=== PATIENT | male | born 1955 | race Caucasian/White ===

== ENCOUNTER 2021-10-06 10:14 | Day surgery (SDC) | payer BC ==
[2021-10-02 14:01] VITALS: BMI 24.4
[~2021-10-06 10:14] MED LIST: DEXAMETHASONE SOD PHOSPHATE 4 MG/ML 1 ML VIAL IV ONE; HEPARIN SODIUM,PORCINE/PF 5,000 UNIT/0.5 ML SYRINGE SQ PRN; HYDROmorphone 0.5 MG/0.5 ML SYRINGE IVP PRN; LACTATED RINGERS 1,000 ML IV SCH; LIDOCAINE 1% (10MG/ML) FOR IV START INTRADERMA PRN; ONDANSETRON 4 MG/2 ML VIAL IVP ONE
--- NOTE | 2021-10-06 11:08 | P.GSHP ---
History of Present Illness H&P Date: 10/06/21 Chief Complaint: Left inguinal hernia 66-year-old male seen in June. Patient complains of bulge left groin. Mild pain at times. Symptoms increase with coughing and straining. No prior hernias. Past Medical History Additional Past Medical History / Comment(s): left inguinal hernia History of Any Multi-Drug Resistant Organisms: None Reported Additional Past Surgical History / Comment(s): colonoscopy Past Anesthesia/Blood Transfusion Reactions: No Reported Reaction Additional Past Anesthesia/Blood Transfusion Reaction / Comment(s): no hx blood transfusion Smoking Status: Current every day smoker - Past Family History Mother Family Medical History: No Reported History Medications and Allergies Home Medications Medication Instructions Recorded Confirmed Type No Known Home Medications 10/02/21 10/06/21 History Allergies Allergy/AdvReac Type Severity Reaction Status Date / Time No Known Allergies Allergy Verified 10/06/21 10:39 Surgical - Exam Vital Signs Temp Pulse Resp BP Pulse Ox 97.9 F 59 L 16 149/67 99 10/06/21 10:40 10/06/21 10:40 10/06/21 10:40 10/06/21 10:40 10/06/21 10:40 Physical exam: General: Well-developed, well-nourished HEENT: Normocephalic, sclerae nonicteric Abdomen: Nontender, nondistended, reducible moderate size left inguinal hernia, no palpable hernia on right Extremities: No edema Neuro: Alert and oriented Assessment and Plan (1) Left inguinal hernia Narrative/Plan: 66-year-old male with symptomatic left inguinal hernia. Options reviewed. We'll proceed with laparoscopic da Manpreet assisted repair left inguinal hernia with mesh, possible open, possible bilateral. Risks of bleeding, infection, rec urrence, bladder and bowel injury, numbness, nerve injury, conversion to an open procedure were discussed with the patient. The patient understands and wishes to proceed. Current Visit: Yes Status: Acute Code(s): K40.90 - UNIL INGUINAL HERNIA, W/O OBST OR GANGR, NOT SPCF RECUR SNOMED Code(s): 745404668
[2021-10-06] MEDS ORDERED: TAMSULOSIN 0.4 MG CAP.ER.24H PO ONE (12:21)
[2021-10-06] MEDS ORDERED: TAMSULOSIN 0.4 MG CAP.ER.24H PO STA (12:24)
[2021-10-06] MEDS ORDERED: PROPOFOL 10 MG/ML 20 ML VIAL IV ONE (12:48)
[2021-10-06] MEDS ORDERED: KETOROLAC 15 MG/ML 1 ML VIAL ONE (12:48)
[2021-10-06] MEDS ORDERED: MIDAZOLAM 2 MG/2 ML VIAL ONE (12:48)
[2021-10-06] MEDS ORDERED: SUCCINYLCHOLINE CHLORIDE 200 MG/10 ML VIAL IV ONE (12:48)
[2021-10-06] MEDS ORDERED: LIDOCAINE 2% INJ 20 MG/ML (2 ML VIAL) ONE (12:48)
[2021-10-06] MEDS ORDERED: fentaNYL (PF) 50 MCG/ML 2 ML AMP ONE (12:48)
[2021-10-06] MEDS ORDERED: GLYCOPYRROLATE 0.2 MG/ML 2 ML VIAL ONE (12:48)
[2021-10-06] MEDS ORDERED: ROCURONIUM 10 MG/ML (5 ML VIAL) IV ONE (12:48)
[2021-10-06] MEDS ORDERED: ePHEDrine 50 MG/ML 1 ML VIAL ONE (12:48)
[2021-10-06] MEDS ORDERED: NEOSTIGMINE 1 MG/ML 10 ML VIAL ONE (12:48)
[2021-10-06] MEDS ORDERED: BUPIVACAIN-EPI 0.25%-1:200,000 30 ML VIAL SQ ONE (13:29)
--- NOTE | 2021-10-06 14:46 | P.OP ---
Date of Procedure: 10/06/21 Procedure(s) Performed: PREOPERATIVE DIAGNOSIS: Left inguinal hernia POSTOPERATIVE DIAGNOSIS: Left indirect inguinal hernia PROCEDURE: Laparoscopic da Manpreet assisted repair indirect left inguinal hernia with mesh SURGEON: Dr. Worthy ANESTHESIA: General OPERATIVE PROCEDURE DETAILS: Patient was placed in the operating table in the supine position. The patient was placed under general anesthesia. The abdomen was prepped and draped in usual sterile fashion. A small curvilinear supraumbilical incision was made. The fascia was retracted anteriorly with Mountain forceps. The Veress needle was inserted. The saline drop test was normal. Insufflation took place to 15 mmHg. An 8 mm trocar was placed into the peritoneal cavity. 2 additional 8 mm trochars were placed in the right upper quadrant and left upper quadrant under visualization. The robotic arms were then brought in and docked into place. The fenestrated bipolar was used in the left arm and the laparoscopic leandro was utilized in the right arm. A 30 8 mm scope was used in the up position. The peritoneal cavity was inspected. The p atient had a superficial defect in the right groin. This appeared to be the start of a small indirect inguinal hernia. Given the patient's lack of symptoms and small size this was not addressed at this time. Patient had a moderate sized indirect inguinal hernia on the left however containing a portion of the sigmoid colon. The left side was addressed at this time. The peritoneum was incised in a horizontal fashion cephalad to the internal inguinal ring. Following that careful dissection of the preperitoneal space took place. This took place using both electrocautery, sharp dissection but primarily blunt dissection. Visualization of the pubic tubercle and Pablo's ligament took place medially. Full dissection took place laterally as well. The hernia sac was fully dissected. Once we had adequate space the extra-large Bard 3-D mid mesh was advanced into the preperitoneal space and flattened out appropriately to cover all potential hernia sites. No sutures were used. The peritoneal defect was then closed using a absorbable 2-0 VLok suture. The hernia sac was incorporated into the peritoneal closure to help prevent future recurrence. The pneumoperitoneum was then evacuated. The skin of all 3 sites was closed using a 4-0 Monocryl stitch. Skin glue was then applied. TYPE OF MESH USED: Bard 5 x 7" extra-large 3-D mid mesh LOCATION OF MESH: Preperitoneal FIXATION: None PREOPERATIVE DISCUSSION ON SMOKING CESSASTION: Yes PREOPERATIVE DISCUSSION ON MORBID OBESITY: Yes PREOPERATIVE DISCUSSION ON APPROPRIATE USE OF NARCOTIC USE: Yes PREOPERATIVE EDUCATION: Multi Modal, Smoking Cessation and Weight Loss with BMI over 35. DISPOSITION: Stable to recovery room
[2021-10-06 14:50] VITALS: TEMP 97.1
[2021-10-06] MEDS ORDERED: ACETAMINOPHEN TAB 325 MG TAB PO SCH (15:00)
[2021-10-06] MEDS ORDERED: LACTATED RINGERS 1,000 ML IV ONE (15:07)
[2021-10-06 15:29] VITALS: RESP 18
[2021-10-06 15:47] VITALS: BP 138/76; PULSE 80
[2021-10-06] MEDS ORDERED: IBUPROFEN 600 MG TAB PO SCH (18:00)
== END 2021-10-06 16:25 | disposition home or self-care (01) ==
LOC: OR 10:14
PROVIDERS: ATTEND Surgery
DX: K40.90 Unilateral inguinal hernia, without obstruction or gangrene, not specified as recurrent (principal); F17.210 Nicotine dependence, cigarettes, uncomplicated
CPT/HCPCS: 49650; S2900

== ENCOUNTER → 2022-08-04 | Outpatient (CLI) | payer BC ==
[2022-08-04 15:12] LABS: HCT 42.5 % (39.6-50.0); HGB 14.1 g/dL (13.0-17.0); MCH 33.1 pg (27.0-32.0); MCHC 33.2 g/dL (32.0-37.0); MCV 99.8 fL (80.0-97.0); Mean Platelet Volume 10.3 fL (9.5-12.2); NRBC Per 100 WBC 0 /100 WBCS (0.0-0.0); Platelet Count 282 X 10*3/uL (140-440); RBC 4.26 X 10*6/uL (4.40-5.60); RDW 12.9 % (11.5-14.5); WBC 7.02 X 10*3/uL (4.50-10.00)
[2022-08-04 15:56] LABS: African American GFR (CKD) 102.8 (60.0-200.0); Anion Gap 9.6 mmol/L (10.00-18.00); Blood Urea Nitrogen 15.7 mg/dL (9.0-27.0); Carbon Dioxide 28.4 mmol/L (20.0-27.5); Non-African American GFR(CKD) 88.7 (60.0-200.0)
== END | disposition home or self-care (01) ==
LOC: LABPAT 08:56
PROVIDERS: ATTEND Internal Medicine Interventional Cardiology
DX: Z01.812 Encounter for preprocedural laboratory examination (principal); I35.1 Nonrheumatic aortic (valve) insufficiency
CPT/HCPCS: 36415; 80051; 82565; 84520; 85027

== ENCOUNTER 2022-08-10 09:08 | Inpatient (IN) | payer BC, MEDICARE ==
[~2022-08-10 09:08] MED LIST changes: +ALPRAZolam 0.25 MG TAB PO PRN; +ALPRAZolam 0.5 MG TAB PO PRN; +ASPIRIN 325 MG TAB PO STA; -DEXAMETHASONE SOD PHOSPHATE 4 MG/ML 1 ML VIAL IV ONE; -HEPARIN SODIUM,PORCINE/PF 5,000 UNIT/0.5 ML SYRINGE SQ PRN; -HYDROmorphone 0.5 MG/0.5 ML SYRINGE IVP PRN; -LACTATED RINGERS 1,000 ML IV SCH; -LIDOCAINE 1% (10MG/ML) FOR IV START INTRADERMA PRN; +NITROGLYCERIN SL TABS 0.4 MG TAB SUBLINGUAL PRN; -ONDANSETRON 4 MG/2 ML VIAL IVP ONE
[2022-08-10] MEDS: SODIUM CHLORIDE 0.9% 1,000 ML in EMPTY BAG 1 BAG IV SCH ×2 (09:34→20:18)
[2022-08-10] MEDS ORDERED: HEPARIN SODIUM 1,000 UN/ML (10ML VL) ONE (09:45)
[2022-08-10] MEDS ORDERED: MIDAZOLAM 2 MG/2 ML VIAL IV ONE (10:02)
[2022-08-10] MEDS ORDERED: LIDOCAINE 1% INJ 10MG/ML (5 ML VIAL-PF) SQ ONE (10:03)
[2022-08-10] MEDS ORDERED: VERAPAMIL SYRINGE (5 MG/10 ML) INTRAARTER ONE (10:05)
[2022-08-10] MEDS: HEPARIN SODIUM 1,000 UN/ML (10ML VL) IV ONE ×3 (10:06→10:55)
[2022-08-10] MEDS ORDERED: PRASUGREL 10 MG TAB ONE ×2 (10:20)
[2022-08-10] MEDS ORDERED: PRASUGREL 10 MG TAB PO ONE (10:22)
[2022-08-10] MEDS ORDERED: IOPAMIDOL-370 100ML BTL INJ ONE ×2 (10:33→10:53)
[2022-08-10] MEDS ORDERED: NITROGLYCERIN 1000MCG/10ML SYRINGE INTRACORON ONE (10:33)
[2022-08-10] MEDS ORDERED: ATROPINE SULFATE 0.1 MG/ML 10ML SYRINGE IV PRN (10:55)
[2022-08-10] MEDS ORDERED: MAG HYDROX/AL HYDROX/SIMETH 30 ML CUP PO PRN (10:55)
[2022-08-10] MEDS ORDERED: NITROGLYCERIN SL TABS 0.4 MG TAB SUBLINGUAL PRN (10:55)
[2022-08-10] MEDS ORDERED: ZOLPIDEM 5 MG TAB PO PRN (10:55)
[2022-08-10] MEDS ORDERED: RX INFO: IV CONTRAST WAS GIVEN 1 EACH MISC MISCELLANE PRN (10:55)
[2022-08-10] MEDS ORDERED: SODIUM CHLORIDE 0.9% 1,000 ML in EMPTY BAG 1 BAG IV SCH (11:00)
--- NOTE | 2022-08-10 11:02 | P.PCN ---
Date of Procedure: 08/10/22 Operative Findings: CARDIAC CATHETERIZATION AND PERCUTANEOUS CORONARY INTERVENTION PERFORMING PHYSICIAN: Lencho Santiago MD, [facility] PROCEDURE PERFORMED: 1. Selective right and left coronary angiogram 2. Successful stenting of distal RCA using 2.75 x 23 mm Xience SAI with an excellent angiographic results 3. Successful stenting of the mid RCA using 3.5 x 38 mm Xience SAI with an excellent angiographic results 4. Adjunctive use of intravascular imaging INDICATION: Chest discomfort in this 66-year-old gentleman who underwent myocardial perfusion imaging stress test and that showed inferolateral ischemia COMPLICATION: None APPROACH: Right radial artery LEVEL OF SEDATION: Moderate with the sedation time off 52 minutes PROCEDURE DESCRIPTION: After obtaining an informed consent the patient was brought to the cardiac laborer drying department. The right radial artery was cannulated using puncture technique, the micropuncture wire passed easily then I placed a 6-Frisian sheath at the right radial artery. I gave the patient 2 mg of verapamil intra-arterial and a total of 5000 use of heparin intra-venous. Additional heparin was given throughout the procedure. I did selective right and left coronary angiogram using JR4 and JL 3.5 catheters. After that I did intervene on the right coronary artery. The procedure was completed was no complication SELECTIVE CORONARY ANGIOGRAM: The right coronary artery: Large caliber vessel and a dominant vessel. The RCA has 2 tubular lesion is one in the distal portion and one in the midportion and a appears to be in the range of 80%. The RCA is calcified. Left main: Has mild disease only. Bifurcates into an LCx and LAD The left circumflex: Large caliber vessel and nondominant vessel. The LCx gives rises into an OM1 which is a large caliber vessel with ostial lesion appears to be in the range of 70%. OM to appears to be angiographically normal. The left anterior descending artery: Large caliber vessel with mild disease only. PCI OF THE RCA: Anticoagulation was initiated using heparin with continuous ACT monitoring. I did engage the RCA using an a.l. 0.75 guiding catheter. I did wired using a whisper wire. After that predilatation was performed using 2.5 mm balloon for the distal and midportion. Intravascular ultrasound was performed after the balloon angioplasty and showed a diameter of the RCA distally about 2.75 mm and in the midportion about 3.5 mm. I did deploy distally 2.75 x 23 mm stent and in the midportion I did deploy 3.5 x 38 mm stent. The stent in the midportion was postdilated using 3.75 mm balloon. The final angiogram showed excellent angiographic results and the procedure was completed with no complication. CONCLUSION: Calcified right and left coronary systems Severe disease involving the RCA in the distal and midportion. I did perform successful stenting of the distal and midportion Severe disease involving the ostial of OM1 which is a large caliber vessel POSTPROCEDURE MANAGEMENT: 1. Dual antiplatelet therapy using aspirin and Plavix for 12 month 2. Consider PCI of OM1 if the patient remains symptomatic 3. Follow-up with the patient
[2022-08-10] MEDS ORDERED: hydrALAZINE HCL 20 MG/ML 1 ML VIAL IVP PRN (11:24)
[2022-08-10] MEDS ORDERED: hydrALAZINE HCL 20 MG/ML 1 ML VIAL ONE (11:25)
[2022-08-10] MEDS ORDERED: SODIUM CHLORIDE 0.9% 1,000 ML IV ONE (14:15)
[2022-08-10] MEDS ORDERED: LIDOCAINE 1% INJ 10MG/ML (20 ML MDV) ONE (14:16)
[2022-08-10] MEDS ORDERED: IV FLUID CONTINUATION 1,000 ML IV ONE (14:27)
[2022-08-10] MEDS ORDERED: LIDOCAINE 1% INJ 10MG/ML (30 ML VIAL-PF) SQ ONE (15:06)
[2022-08-10 15:31] LABS: Glucose,Whole Blood 98 mg/dL (70-110)
--- NOTE | 2022-08-10 17:41 | P.PCN ---
Date of Procedure: 08/10/22 Operative Findings: Transvenous temporary pacemaker placement Performing physician Lencho Santiago MD Procedure performed Placement of transvenous temporary pacemaker from right femoral vein Ultrasound-guided access of the right common femoral vein Indication Symptomatic bradycardia Complications None Level of sedation Moderate sedation length of 12 minutes Approach Right common femoral vein Procedure description After obtaining an informed consent the patient was brought to the cardiac cathode builder. The right common femoral vein was cannulated using micropuncture technique and ultrasound guidance, the micropuncture wire passed easily then I placed a 6 Malawian sheath. After that under fluoroscopy guidance a temporary pacer wire with balloon tip was advanced to the right ventricle. The pacer was secured. We placed the setting at 50 heart rate permanent and an amp of 5. The procedure was completed with no complication
[2022-08-10] MEDS ORDERED: ATORVASTATIN 40 MG TAB PO SCH (21:00)
[2022-08-11 06:12] LABS: African American GFR (CKD) >90 (>60 ml/min/1.73 sqM); Anion Gap 9 mmol/L; Blood Urea Nitrogen 9 mg/dL (9-20); Calcium 8.8 mg/dL (8.4-10.2); Carbon Dioxide 20 mmol/L (22-30); Chloride 108 mmol/L (98-107); Glucose 89 mg/dL (74-99); Non-African American GFR(CKD) >90 (>60 ml/min/1.73 sqM); Potassium 3.8 mmol/L (3.5-5.1); Sodium 137 mmol/L (137-145)
[2022-08-11] MEDS: SODIUM CHLORIDE 0.9% 1,000 ML in EMPTY BAG 1 BAG IV SCH (06:30)
[2022-08-11] MEDS ORDERED: POTASSIUM CHLORIDE ER 20 MEQ TAB.ER PO SCH (07:00)
[2022-08-11 08:48] VITALS: TEMP 97.8
[2022-08-11] MEDS ORDERED: ASPIRIN 81 MG PO SCH (09:00)
[2022-08-11] MEDS ORDERED: PRASUGREL 10 MG TAB PO SCH (09:00)
[2022-08-11] MEDS ORDERED: NICOTINE 14MG/24HR PATCH TRANSDERM SCH (09:00)
--- NOTE | 2022-08-11 10:00 | P.DS ---
Providers Date of admission: 08/10/22 15:47 Attending physician: Lencho Santiago Consults: 08/10/22 10:55 Consult Physician Routine Consulting Provider: [facility] Consult Reason/Comments: Post Interventional patient Do you want consulting provider notified?: Already Contacted Primary care physician: Harmony Horne [facility] Course: The patient is a pleasant 66-year-old gentleman who underwent yesterday a heart catheterization and was found to have severe disease involving the RCA distally and in the midportion. He underwent successful stenting of the RCA with a good angiographic results and with no complication. Postprocedure the patient was noted to be bradycardic and he was experiencing intermittent episodes of junctional rhythm. He was not on any AV nury alana agents. Transcutaneous temporary pacemaker was placed and the patient was admitted to the intensive care unit. He was seen this morning. He is not bradycardic anymore. He is asymptomatic and hemodynamically stable. The patient is going to be discharged home on aspirin and statin with no beta alana and also he would be on antiplatelet with Effient. Plan - Discharge Summary Discharge Rx Participant: Yes New Discharge Prescriptions: New Prasugrel [Effient] 10 mg PO DAILY #90 tab Continue Nicotine 14Mg/24Hr Patch [Habitrol] 1 patch TRANSDERM DAILY Aspirin 81 mg PO DAILY Atorvastatin [Lipitor] 40 mg PO HS Discharge Medication List Aspirin 81 mg PO DAILY 08/06/22 [History] Atorvastatin [Lipitor] 40 mg PO HS 08/06/22 [History] Nicotine 14Mg/24Hr Patch [Habitrol] 1 patch TRANSDERM DAILY 08/06/22 [History] Prasugrel [Effient] 10 mg PO DAILY #90 tab 08/11/22 [Rx] Follow up Appointment(s)/Referral(s): Lencho Santiago MD [STAFF PHYSICIAN] - 1 Week (APPOINTMENT MADE ON August @ 1:45PM ) Patient Instructions/Handouts: Moderate Sedation (DC), Cardiac Rehabilitation (ED), Coronary Intravascular Stent Placement (DC), After Radial Heart Catheterization (GEN) Activity/Diet/Wound Care/Special Instructions: *NO LIFTING, PUSHING, OR PULLING ANYTHING OVER 5 POUNDS FOR 5 DAYS *NO DRIVING FOR 3 DAYS *YOU CAN REMOVE YOUR DRESSING AND SHOWER TOMORROW BUT DO NOT SUBMERSE YOUR PUNCTURE SITE IN WATER FOR A FEW DAYS TO PREVENT INFECTION - SO NO TUB BATHS, POOLS, HOT TUBS, DISHES...ETC *ANY SIGNS OF BLEEDING (HARDNESS, SWELLING, OR EXCESSIVE BRUISING) HOLD DIRECT PRESSURE ON YOUR PUNCTURE SITE AND COME TO THE NEAREST EMERGENCY ROOM TO GET YOUR PUNCTURE SITE LOOKED AT - DO NOT DRIVE YOURSELF! EITHER CALL EMS OR HAVE SOMEONE DRIVE YOU!
[2022-08-11 12:14] VITALS: BMI 24.6
[2022-08-11 12:23] VITALS: BP 154/78; PULSE 82; RESP 27
== END 2022-08-11 12:57 | disposition home or self-care (01) | DRG 247 ==
LOC: CATHCVL 09:08 → 6NMEDSUR 10:51 → 2SICU 13:23 → CATHCVL 15:47 → 2SICU 15:47
PROVIDERS: ADMIT Internal Medicine Interventional Cardiology; ATTEND Internal Medicine Interventional Cardiology
PROC: 4A023N7 Measurement of Cardiac Sampling and Pressure, Left Heart, Percutaneous Approach (ICD-10-PCS; principal; 2022-08-10 10:30)
PROC: B2111ZZ Fluoroscopy of Multiple Coronary Arteries using Low Osmolar Contrast (ICD-10-PCS; principal; 2022-08-10 10:30)
PROC: 027035Z Dilation of Coronary Artery, One Artery with Two Drug-eluting Intraluminal Devices, Percutaneous Approach (ICD-10-PCS; principal; 2022-08-10 10:30)
PROC: 5A1223Z Performance of Cardiac Pacing, Continuous (ICD-10-PCS; 2022-08-10 10:30)
DX: I25.10 Atherosclerotic heart disease of native coronary artery without angina pectoris (principal); Q23.1 Congenital insufficiency of aortic valve; R00.1 Bradycardia, unspecified; I10 Essential (primary) hypertension; I65.23 Occlusion and stenosis of bilateral carotid arteries; E78.00 Pure hypercholesterolemia, unspecified; I25.84 Coronary atherosclerosis due to calcified coronary lesion; Z28.310 Unvaccinated for COVID-19; F17.210 Nicotine dependence, cigarettes, uncomplicated; Z79.82 Long term (current) use of aspirin; Z79.899 Other long term (current) drug therapy; Z71.6 Tobacco abuse counseling
CPT/HCPCS: 33210; 76937; 80048; 92978; 93454

== ENCOUNTER → 2024-07-11 | Outpatient (CLI) | payer MEDICARE ==
[2024-07-11 13:11] VITALS: BP 122/69; PULSE 64; RESP 16; TEMP 97.8
--- NOTE | 2024-07-11 14:06 | P.SLEEP ---
History of Present Illness H&P Date: 07/11/24 This is a 68-year-old male patient presenting with symptoms of chronic fatigue has been going on for the past few years. The patient is feeling exhausted during the day and is sleeping longer hours. He goes to bed around midnight and he gets out of bed at 8:00 in the morning and is averaging around 7 to 8 hours of sleep. He also takes a nap which is a 1 hour nap at around 1 PM. Despite all this, he feels exhausted and his sleep is not restoring the desired energy. He has minimal snoring. Sleep is not fragmented. He wakes up once in the middle of the night to urinate. No grinding. No sleepwalking. No sleep talking. No restlessness in lower extremities. No nocturnal chest pain or h eartburn. No issues with memory or concentration. He is able to drive and he does not fall asleep while driving. No sleep paralysis. No hallucinations. No cataplexy. No history of depression. No anxiety. No substance abuse. No alcoholism. His current Ahmeek score is at 7. Weight has been stable without any significant weight gain over the past 10 years. 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 Review of Systems Constitutional: Reports daytime sleepiness, Reports fatigue Eyes: denies as per HPI, denies blurred vision, denies bulging eye, denies decreased vision, denies diplopia, denies discharge, denies dry eye, denies irritation, denies itching, denies pain, denies photophobia, denies loss of peripheral vision, denies loss of vision, denies tunnel vision/blind spots Ears: deny: decreased hearing, ear discharge, earache, tinnitus Ears, nose, mouth and throat: Reports as per HPI Breasts: absent: as per HPI, gynecomastia Cardiovascular: Reports as per HPI Respiratory: Reports snoring Gastrointestinal: Reports as per HPI Genitourinary: Reports as per HPI Musculoskeletal: Reports as per HPI Musculoskeletal: absent: ankle pain, ankle stiffness, ankle swelling, as per HPI, elbow pain, elbow stiffness, elbow swelling, foot pain, foot stiffness, foot swelling, hand pain, hand stiffness, hand swelling, hip pain, hip stiffness, hip swelling, knee pain, knee stiffness, knee swelling, shoulder pain, shoulder stiffness, shoulder swelling, wrist pain, wrist stiffness, wrist swelling Integumentary: Reports as per HPI Neurological: Reports as per HPI Endocrine: Reports as per HPI, Reports fatigue Hematologic/Lymphatic: Reports as per HPI Allergic/Immunologic: Reports as per HPI Past Medical History Past Medical History: Coronary Artery Disease (CAD) (Previous coronary intervention and stenting. The patient also has a bicuspid aortic valve.), Cancer, Hyperlipidemia Additional Past Medical History / Comment(s): left inguinal hernia, pre cancerous skin moles removed in 2 [address] History of Any Multi-Drug Resistant Organisms: None Reported Past Surgical History: Hernia Repair Additional Past Surgical History / Comment(s): colonoscopy, hear cath with 2 stents to RCA 08/10/22 Past Anesthesia/Blood Transfusion Reactions: No Reported Reaction Additional Past Anesthesia/Blood Transfusion Reaction / Comment(s): no hx blood transfusion Past Psychological History: No Psychological Hx Reported Smoking Status: Current every day smoker Past Alcohol Use History: None Reported Additional Past Alcohol Use History / Comment(s): started smoking at age 15. 1 ppd Past Drug Use History: None Reported - Past Family History Mother Family Medical History: Rheumatoid Arthritis (RA) Father Family Medical History: Osteoarthritis (OA) Son(s) Family Medical History: Sleep Apnea/CPAP/BIPAP Medications and Allergies Home Medications Medication Instructions Recorded Confirmed Type Aspirin 81 mg PO DAILY 08/06/22 07/11/24 History Atorvastatin [Lipitor] 40 mg PO HS 08/06/22 07/11/24 History Nicotine 14Mg/24Hr Patch [Habitrol] 1 patch TRANSDERM DAILY 08/06/22 08/10/22 History Prasugrel [Effient] 10 mg PO DAILY #90 tab 08/11/22 Rx Allergies Allergy/AdvReac Type Severity Reaction Status Date / Time No Known Allergies Allergy Verified 08/10/22 09:32 Physical Exam Vitals: Vital Signs Temp Pulse Resp BP Pulse Ox 07/11/24 13:10 97.8 F 64 16 122/69 99 Intake and Output 07/10/24 07/11/24 07/11/24 22:59 06:59 14:59 Other: Weight 81.647 kg The patient appeared well nourished and normally developed. Vital signs as documented. Head exam is unremarkable. No scleral icterus or corneal arcus noted. Neck is without jugular venous distension, thyromegaly, or carotid bruits. Carotid upstrokes are brisk bilaterally. Patient has a Mallampati class III Lungs are clear to auscultation and percussion. Cardiac exam reveals the PMI to be normally sized and situated. Rhythm is regular. First and second heart sounds normal. No murmurs, rubs or gallops. Abdominal exam reveals normal bowel sounds, no masses, no organomegaly and no aortic enlargement. Extremities are nonedematous and both femoral and pedal pulses are normal. Examination of the skin revealed no evidence of significant rashes, suspicious appearing nevi or other concerning lesions. Neurologically, the patient is awake and alert and the patient does not have any focal neurological deficit. Cranial nerves are essentially intact. Assessment and Plan Plan: Chronic fatigue and limited sleepiness with an Ahmeek score of 7. Symptoms have been ongoing for the past 2 to 3 years. Exact etiology is not clear. Rule out underlying obstructive sleep apnea. Rule out cardiac comorbidities contributing to his chronic fatigue. No history of anxiety. No history of depression. No substance abuse. No chronic illnesses or comorbidities. Coronary artery disease with previous stenting of the RCA Bicuspid aortic valve Hyperlipidemia Plan Will proceed with a screening polysomnography. The purpose of the procedure will be to evaluate his sleep quality, architecture, efficiency and rule out an underlying sleep breathing disorder contributing to his symptoms of chronic fatigue and sleepiness. Patient has good sleep hygiene measures No indication for any insufficient sleep syndrome Comorbidities are being treated Will continue to follow and make further recommendations based on the results of the sleep study. Time with Patient: Greater than 30 Sleep Note - Sleep Data ESS Total: 7 - Sleep Note Sleep Note: Temperature: 97.8 F Pulse Rate: 64 Respiratory Rate: 16 Blood Pressure: 122/69 SpO2: 99 Height: 5 ft 9.5 in Weight: 81.647 kg BMI: Neck Circumference: 15.5
== END ==
LOC: 3 N SLEEP 12:58
PROVIDERS: ATTEND Internal Medicine Critical Care Medicine
DX: I25.10 Atherosclerotic heart disease of native coronary artery without angina pectoris (principal); R53.82 Chronic fatigue, unspecified; Q23.81 Bicuspid aortic valve; E78.5 Hyperlipidemia, unspecified; F17.200 Nicotine dependence, unspecified, uncomplicated; Z95.5 Presence of coronary angioplasty implant and graft
CPT/HCPCS: 99211

== ENCOUNTER 2024-08-28 19:45 | Outpatient (CLI) | payer MEDICARE ==
--- NOTE | 2024-09-04 23:34 | P.PCN ---
Date of Procedure: 08/28/24 Operative Findings: Polysomnography report History This is a 68-year-old male patient presenting with symptoms of chronic fatigue has been going on for the past few years. The patient is feeling exhausted during the day and is sleeping longer hours. He goes to bed around midnight and he gets out of bed at 8:00 in the morning and is averaging around 7 to 8 hours of sleep. He also takes a nap which is a 1 hour nap at around 1 PM. Despite all this, he feels exhausted and his sleep is not restoring the desired energy. He has minimal snoring. Sleep is not fragmented. He wakes up once in the middle of the night to urinate. No grinding. No sleepwalking. No sleep talking. No restlessness in lower extremities. No nocturnal chest pain or heartburn. No issues with memory or concentration. He is able to drive and he does not fall asleep while driving. No sleep paralysis. No hallucinations. No cataplexy. No history of depression. No anxiety. No substance abuse. No alcoholism. His current Moorefield score is at 7. Weight has been stable without any significant weight gain over the past 10 years. 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 Technical description The patient was studied using a standard complex polysomnography protocol that included recording of the Lead II EKG, Central, occipital and frontal EEG, right and left outer canthus EOG, submental EMG, right and left anterior tibialis EMG, respiratory airflow by thermocouple and or pressure/flow transducer, respiratory efforts by abdominal and thoracic PVDF belts, oxygen saturation by cable oximetry. Position by observation synchronized the PSG. Equipment used: [employer]. Physical findings Weight is 180 pounds with a BMI of 26.2 Sleep architecture The total recording duration was 380.5 minutes. The total sleep time was 256.5 minutes. The wake after sleep onset time was 105.5 minutes. The overall sleep efficiency was 67.4%. The latency to sleep onset was 17.5 minutes. The sleep architecture was characterized by 14.8% stage I, 55.2% stage II, 8.4% stage III and a total of 21.6% REM sleep. Latency to REM sleep was 121.5 minutes. The total arousal index was 15.4 Respiratory summary The patient encountered a total of 11 obstructive events of which 3 were obstructive apneas, 0 mixed apneas and 8 were obstructive hypopneas. The resulting AHI was 2.3. In addition, the patient had a total of 1 central apnea with a central apnea index of 0.2. Oxygenation analysis The baseline pulse ox while awake was 93%. Lowest oxygen saturation was 89%. No significant desaturation below 89% and the patient managed to maintain a pulse ox above 89% for the majority of the sleep time. Limb movement summary There was a total of 128 periodic limb movement activity with an index of 29.9. There was a total of 8 limb movement activity with arousals with an index of 1.9 Sleep continuity There was a total of 66 arousals with an index of 15.4. The respiratory arousal index was 0.7 Cardiac summary Average heart rate was 61 with a minimum heart rate of 58 and a maximal heart of 65, normal sinus rhythm with occasional PVCs. Assessment Primary snoring, no evidence of any sleep breathing disorder. The patient had an AHI of 2.3. No significant nocturnal oxygen desaturations. Poor sleep efficiency calculated to be at 67.4% Adequate sleep architecture as the patient was able to go through all sleep stages No evidence of any significant periodic limb movement activity Chronic fatigue and limited sleepiness with an Moorefield score of 7. This is obviously not related to obstructive sleep apnea Coronary artery disease with previous stenting of the RCA Bicuspid aortic valve Hyperlipidemia Plan No significant sleep breathing disorder Patient has good sleep hygiene measures No indication for any insufficient sleep syndrome Comorbidities are being treated No need for CPAP therapy. Will refer this patient back to primary care.
== END 2024-08-29 05:25 | disposition home or self-care (01) ==
LOC: 3 N SLEEP 19:45
PROVIDERS: ATTEND Internal Medicine Critical Care Medicine
DX: I25.10 Atherosclerotic heart disease of native coronary artery without angina pectoris (principal); R06.83 Snoring; R53.82 Chronic fatigue, unspecified; E78.5 Hyperlipidemia, unspecified; Z95.5 Presence of coronary angioplasty implant and graft
CPT/HCPCS: 95810